=== PATIENT | female | born 2000 | race Caucasian/White ===

== ENCOUNTER 2021-10-12 15:46 | Emergency (ER) | payer OTHER, MEDICAID ==
[~2021-10-12] VITALS: Ht 152.4 cm; Wt 49.1 kg
[2021-10-12 16:24] VITALS: BP 118/71
[2021-10-12] MEDS ORDERED: ALBUTEROL SULFATE HFA 90 MCG/PUFF 8 GM INHALER IH ONE (17:15)
[2021-10-12] MEDS ORDERED: HYDR-4808 PO (17:17)
== END 2021-10-12 17:23 | disposition home or self-care (01) ==
LOC: EMS 15:50
DX: J45.909 Unspecified asthma, uncomplicated (principal); F41.9 Anxiety disorder, unspecified; Z88.0 Allergy status to penicillin
CPT/HCPCS: 71045; 93005; 94640; 99283; J3535